=== PATIENT | male | born 1965 | race Caucasian/White ===

== ENCOUNTER 2022-07-05 10:36 | Emergency (ER) | payer SELFPAY ==
[2022-07-05] VITALS (15 sets, daily range): BP systolic 137–170; BP diastolic 94–112; PULSE 67–93; TEMP 35.8; O2SAT 95–100; BMI 35.3
--- NOTE | 2022-07-05 11:53 | ED.GENADULT ---
HPI - General Adult General Date Seen: 07/05/22 Chief complaint: Unspecified Complaint, Adult Stated complaint: Chest Pain Time Seen by Provider: 07/05/22 11:33 Source: patient Mode of arrival: ambulatory Limitations: no limitations History of Present Illness HPI narrative: Is a 57-year-old who presents for evaluation of central anterior chest pain. He has pain in his neck, left shoulder, left arm, but these pains are all chronic. The only pain that is new is the pain in his chest. This is been there for a week, and comes and goes. He says initially it was only there when he took a deep breath, it is sharp and localized. Now however he notices it when he moves as well. He says he has a lot of trouble sleeping at night, he is only able to sleep for 10 or 15 minutes, he wakes up between 2 and 4 and then gets up and cooks things in the kitchen. Apparently this pain has made it even more difficult to sleep. He is short of breath but he is always short of breath, does not sound like he is much more short of breath than usual. No fever cough. No unusual pain or swelling in his legs, he has chronic knee pain. He has chronic pain in his back and neck, chronic pain in his hands. He takes oxycodone and gabapentin for chronic pain. He called the [facility] to make an appointment to be seen for the chest pain but was it recommended to come here. He says he just wanted to make sure he was not going to drop . He has longstanding problems with hypertension, but denies any known cardiac history. He does not smoke or drink. Denies other substance use. He was sent home from work he says the urine half ago, I asked him if he was on disability and that sounds like there is some sort of long story associated with why he is not currently working. We did not delve into that further. Related Data Home Medications Medication Instructions Recorded Confirmed amlodipine 10 mg tablet mg 07/05/22 bupropion HCl 150 mg 24 hr tablet, mg PO 07/05/22 extended release duloxetine 60 mg capsule,delayed mg PO 07/05/22 release gabapentin 300 mg capsule mg 07/05/22 hydroxyzine pamoate 50 mg capsule mg 07/05/22 lisinopril 20 tab 07/05/22 mg-hydrochlorothiazide 25 mg tablet methocarbamol 750 mg tablet mg 07/05/22 nabumetone 750 mg tablet mg 07/05/22 oxycodone-acetaminophen 5 mg-325 tab 07/05/22 mg tablet Allergies Allergy/AdvReac Type Severity Reaction Status Date / Time No Known Drug Allergies Allergy Verified 07/05/22 10:51 Review of Systems Status of ROS: Reports: 10 or more systems reviewed and unremarkable except as noted in History and below PFSH PFS Social History Smoking Status: Never smoker How often do you have a drink containing alcohol: never How often do you have six or more drinks on one occasion: Never AUDIT-C Alcohol total score: 0 Non-prescribed substance use: denies use Exam Narrative: Exam Narrative: Vital signs as noted above. In general, an alert, nontoxic male. Cooperative, pleasant. Head: Normocephalic, atraumatic. Eyes: Pupils are equal reactive. Extraocular movements are full. Conjunctivae are normal. ENT: Mucous membranes are moist. Throat is normal. Neck: Supple without lymphadenopathy. Heart: Regular rate and rhythm. No murmur or rub. Lungs: Clear bilaterally. No increased work of breathing, crackles or wheezes. Abdomen: Soft and nontender. No organomegaly. Extremities: Well perfused. No edema. No calf tenderness. Pulses intact. Neurologic: Patient is alert and oriented to person and place. Speech is fluent. Face is symmetric. Moves all extremities equally. Affect: Anxious, speech is a little pressured. Skin: Warm and dry. Well perfused. Const: Vital Signs, click to edit/add: Vital Signs - 24 hr 07/05/22 10:46 07/05/22 11:51 07/05/22 11:35 Temperature 96.5 F L Pulse Rate 71 Pulse Rate [Pulse Oximeter] 90 Blood Pressure 156/94 H Blood Pressure [Ri ght Upper Arm] 170/99 H Pulse Oximetry 98 100 100 Oxygen Delivery Me thod Room Air 07/05/22 11:36 07/05/22 12:03 07/05/22 12:10 Temperature Pulse Rate 88 86 90 Pulse Rate [Pulse Oximeter] Blood Pressure Blood Pressure [Ri ght Upper Arm] Pulse Oximetry 97 100 98 Oxygen Delivery Me thod 07/05/22 12:11 07/05/22 12:30 07/05/22 12:32 Temperature Pulse Rate 91 92 80 Pulse Rate [Pulse Oximeter] Blood Pressure 147/104 H Blood Pressure [Ri ght Upper Arm] Pulse Oximetry 97 100 100 Oxygen Delivery Me thod 07/05/22 12:33 07/05/22 13:00 07/05/22 13:02 Temperature Pulse Rate 91 67 88 Pulse Rate [Pulse Oximeter] Blood Pressure 137/112 H Blood Pressure [Ri ght Upper Arm] Pulse Oximetry 100 96 98 Oxygen Delivery Me thod 07/05/22 13:30 07/05/22 13:31 07/05/22 13:32 Temperature Pulse Rate 93 87 89 Pulse Rate [Pulse Oximeter] Blood Pressure 138/99 H Blood Pressure [Ri ght Upper Arm] Pulse Oximetry 95 99 99 Oxygen Delivery Me thod Documenting provider has reviewed patient's vital signs: yes Course Course Hospital Course: Patient had an EKG on arrival, my review of this shows sinus rhythm, ventricular rate of 80. Frequent PVCs which he does not seem to feel. Normal MS, normal QT. no acute ST segment changes. He is presenting with 1 week of new, localized chest pain associated with breathing and movement. Nonexertional. Point of care troponin was 0. My suspicion for a cardiac cause is fairly low. I do not see evidence of pericarditis on EKG. Pain is not exertional, present with breathing and movement, fairly atypical and troponin is 0.02. Heart score puts him at low risk. He is not hypoxic or tachycardic. He was hypertensive on arrival at 170/99. My suspicion of dissection is fairly low given his presentation, PE is a possibility with pleuritic chest pain of course but he does not have immediately visible risk factors. I am going to do a D-dimer. Other labs are pending at this time. He has an extensive history of various musculoskeletal pain problems, it is certainly possible this is chest wall related. IM waiting on the D-dimer to determine whether to do a chest x-ray or CT of the chest. Labs are reassuring, D-dimer is negative. CBC shows a white count of 6, hemoglobin of 15.8. Normal diff aside from mildly elevated monocytes. D-dimer is normal at 0.3, and I think this effectively rules out pulmonary embolism. Given my very low clinical suspicion of dissection I think this is helpful in ruling out that diagnosis as well. Patient was hypertensive on arrival but this has improved with time. Metabolic panel is normal. LFTs show mildly elevated AST and ALT but otherwise LFTs are unremarkable as well. CRP is less than 0.5 and BNP is essentially undetectable. Given atypical nature of symptoms and duration of symptoms I do not think a 2nd troponin is necessary. I think it is reasonable to let him go home being unremarkable chest x-ray which is being done right now. Would recommend continuation of his normal pain medications with potential addition of anti-inflammatories such as ibuprofen. Primary care follow-up for re-evaluation next week. Chest x-rays negative by my review, very lateral edges of the chest x-ray are cut off. Final radiology report is negative. Final plan as above. Vital Signs Vital signs: Initial Vital Signs Temperature 96.5 F L 07/05/22 10:46 Temperature Source Temporal Artery Scan 07/05/22 10:46 Pulse Rate 90 07/05/22 10:46 Blood Pressure 170/99 H 07/05/22 10:46 Blood Pressure Mean 122 07/05/22 10:46 Blood Pressure Position Sitting 07/05/22 10:46 Pulse Oximetry 98 07/05/22 10:46 Oxygen Delivery Method 07/05/22 10:46 Vital Signs Temperature 96.5 F L 07/05/22 10:46 Pulse Rate 90 07/05/22 10:46 Blood Pressure 170/99 H 07/05/22 10:46 Pulse Oximetry 98 07/05/22 10:46 Oxygen Delivery Method 07/05/22 10:46 Temperature 96.5 F L 07/05/22 10:46 Pulse Rate 89 07/05/22 13:32 Blood Pressure 138/99 H 07/05/22 13:31 Pulse Oximetry 99 07/05/22 13:32 Oxygen Delivery Method 07/05/22 10:46 Medical Decision Making Lab Data Labs: Lab Results 07/05/22 07/05/22 07/05/22 Range/Units 11:52 11:52 11:52 WBC 6.15 (4.50-11.00) K/uL RBC 4.72 (4.30-5.90) m/uL Hgb 15.8 (13.5-17.5) gm/dL Hct 46.6 (37.0-53.0) % MCV 99 (80-100) fL MCH 34 (26-34) pg MCHC 34 (32-36) gm/dL RDW Coeff of Lucy 12.6 (11.5-15.5) % Plt Count 222 (140-440) K/uL Neut % (Auto) 53.0 (42.0-72.0) % Lymph % (Auto) 30.2 (20-44) % [place] % (Auto) 13.0 H (0.0-11.0) % Eos % (Auto) 2.8 (0.0-7.0) % Baso % (Auto) 0.8 (0.0-3.0) % Neut # (Auto) 3.26 (1.7-7.0) K/uL Lymph # (Auto) 1.86 (0.90-2.90) K/uL [place] # (Auto) 0.80 (0.00-0.90) K/UL Eos # (Auto) 0.17 (0.00-0.50) K/uL Baso # (Auto) 0.05 (0.00-0.30) K/uL D-Dimer Quant (PE/DVT) 0.30 (0.00-0.50) ug/ml Sodium 138 (135-149) mmol/L Potassium 3.9 (3.6-5.1) mmol/L Chloride 103 (96-114) mmol/L Carbon Dioxide 26 (20-32) mmol/L BUN 18 (7-30) mg/dL Creatinine 0.8 (0.5-1.5) mg/dL Estimated Creat Clear 109.13 Estimated GFR 102 ml/min Glucose 123 H (60-115) mg/dL Calcium 9.2 (8.4-10.6) mg/dL Total Bilirubin 0.8 (0.1-1.5) mg/dL Direct Bilirubin 0.3 (0.0-0.5) mg/dL AST 52 H (12-35) U/L ALT 52 H (4-50) U/L Alkaline Phosphatase 70 (40-150) U/L C-Reactive Protein < 0.5 L (0.5-1.0) mg/dL NT-Pro-B Natriuret Pep < 20 pg/mL Total Protein 8.2 (6.0-8.3) g/dL Albumin 4.9 (3.3-5.0) g/dL Lipase 143 (23-300) U/L POC Troponin I (0.01-0.04) ng/ml 07/05/22 Range/Units 11:53 WBC (4.50-11.00) K/uL RBC (4.30-5.90) m/uL Hgb (13.5-17.5) gm/dL Hct (37.0-53.0) % MCV (80-100) fL MCH (26-34) pg MCHC (32-36) gm/dL RDW Coeff of Lucy (11.5-15.5) % Plt Count (140-440) K/uL Neut % (Auto) (42.0-72.0) % Lymph % (Auto) (20-44) % [place] % (Auto) (0.0-11.0) % Eos % (Auto) (0.0-7.0) % Baso % (Auto) (0.0-3.0) % Neut # (Auto) (1.7-7.0) K/uL Lymph # (Auto) (0.90-2.90) K/uL [place] # (Auto) (0.00-0.90) K/UL Eos # (Auto) (0.00-0.50) K/uL Baso # (Auto) (0.00-0.30) K/uL D-Dimer Quant (PE/DVT) (0.00-0.50) ug/ml Sodium (135-149) mmol/L Potassium (3.6-5.1) mmol/L Chloride (96-114) mmol/L Carbon Dioxide (20-32) mmol/L BUN (7-30) mg/dL Creatinine (0.5-1.5) mg/dL Estimated Creat Clear Estimated GFR ml/min Glucose (60-115) mg/dL Calcium (8.4-10.6) mg/dL Total Bilirubin (0.1-1.5) mg/dL Direct Bilirubin (0.0-0.5) mg/dL AST (12-35) U/L ALT (4-50) U/L Alkaline Phosphatase (40-150) U/L C-Reactive Protein (0.5-1.0) mg/dL NT-Pro-B Natriuret Pep pg/mL Total Protein (6.0-8.3) g/dL Albumin (3.3-5.0) g/dL Lipase (23-300) U/L POC Troponin I 0.02 (0.01-0.04) ng/ml Discharge Plan Discharge Clinical Impression: Atypical chest pain Patient Disposition: Home, Self-Care Condition: Stable Instructions: Chest Pain (ED) Additional Instructions: Follow up with your clinic doctor for recheck in the next couple of weeks. Return for severe pain or other worsening symptoms. Continue your current medications. All tests today are reassuring and there is no evidence of a dangerous cause for your chest pain. Prescriptions: No Action nabumetone 750 mg tablet Label Comments: TAKE ONE TABLET BY MOUTH TWICE A DAY WITH MEALS hydroxyzine pamoate 50 mg capsule Label Comments: TAKE ONE CAPSULE BY MOUTH EVERY DAY AT BEDTIME NEEDED oxycodone-acetaminophen 5-325 mg tablet methocarbamol 750 mg tablet Label Comments: TAKE ONE TABLET BY MOUTH EVERY 6 HOURS NEEDED FOR MUSCLE SPASM amlodipine 10 mg tablet Label Comments: TAKE ONE TABLET BY MOUTH EVERY DAY gabapentin 300 mg capsule Label Comments: TAKE TWO CAPSULES BY MOUTH THREE TIMES A DAY lisinopril-hydrochlorothiazide 20-25 mg tablet Label Comments: TAKE ONE TABLET BY MOUTH EVERY MORNING bupropion HCl 150 mg tablet extended release 24 hr PO Label Comments: TAKE ONE TABLET BY MOUTH EVERY MORNING duloxetine 60 mg capsule,delayed release(DR/EC) PO Label Comments: TAKE ONE CAPSULE BY MOUTH EVERY DAY Stand Alone Forms: [facility] Info Instructions
[2022-07-05 12:17] LABS: Basophils Absolute Auto 0.05 K/uL (0.00-0.30); Basophils Percent Auto 0.8 % (0.0-3.0); Eosinophils Absolute Auto 0.17 K/uL (0.00-0.50); Eosinophils Percent Auto 2.8 % (0.0-7.0); Hematocrit 46.6 % (37.0-53.0); Hemoglobin* 15.8 gm/dL (13.5-17.5); Immature Granulocytes Abs Auto 0.01 K/uL (0.00-0.30); Immature Granulocytes Pct Auto 0.2 %; Lymphocytes Absolute Auto 1.86 K/uL (0.90-2.90); Lymphocytes Percent Auto 30.2 % (20-44); Mean Corpuscular HGB Conc 34 gm/dL (32-36); Mean Corpuscular Hemoglobin 34 pg (26-34); Mean Corpuscular Volume 99 fL (80-100); Neutrophils Absolute Auto 3.26 K/uL (1.7-7.0); Platelet Count* 222 K/uL (140-440); RDW Coefficient of Variation % 12.6 % (11.5-15.5); Red Blood Count 4.72 m/uL (4.30-5.90); White Blood Count* 6.15 K/uL (4.50-11.00)
[2022-07-05 12:22] LABS: Troponin, Point-of-Care* 0.02 ng/ml (0.01-0.04)
[2022-07-05 12:25] LABS: Slide Review Reflex No
[2022-07-05 12:32] LABS: Albumin* 4.9 g/dL (3.3-5.0); Chloride* 103 mmol/L (96-114)
[2022-07-05 12:33] LABS: Potassium* 3.9 mmol/L (3.6-5.1); Sodium* 138 mmol/L (135-149)
[2022-07-05 12:35] LABS: Creatinine* 0.8 mg/dL (0.5-1.5); Est. Creatinine Clearance* 109.13; Estimated Glomerular Filt Rate 102 ml/min
[2022-07-05 12:36] LABS: Alanine Aminotransferase* 52 U/L (4-50); Alkaline Phosphatase* 70 U/L (40-150); Aspartate Amino Transferase* 52 U/L (12-35); Bilirubin Direct* 0.3 mg/dL (0.0-0.5); Bilirubin Total* 0.8 mg/dL (0.1-1.5); Blood Urea Nitrogen* 18 mg/dL (7-30); Calcium* 9.2 mg/dL (8.4-10.6); Carbon Dioxide* 26 mmol/L (20-32); Glucose* 123 mg/dL (60-115); Lipase* 143 U/L (23-300); Total Protein* 8.2 g/dL (6.0-8.3)
[2022-07-05 12:47] LABS: C Reactive Protein* < 0.5 mg/dL (0.5-1.0); NT Pro B Type NatriureticPept* < 20 pg/mL
--- NOTE | 2022-07-05 12:50 | CRLHL7_ITS ---
For Patients: As a result of the Century Cures Act, medical imaging exams and procedure reports are released immediately into your electronic medical record. You may view this report before your referring provider. If you have questions, please contact your health care provider. INDICATION: Chest pain. TECHNIQUE: Two-view chest. FINDINGS: Clear lungs. Overall heart size and pulmonary vascularity are within normal limits. Two level cervical spine fusion incompletely evaluated on this chest x-ray. Mild spurring of the mid to lower thoracic spine. IMPRESSION: No acute cardiopulmonary process identified. Postsurgical change of the lower cervical spine. Dictated by Zeeshan Roy MD @ 07/05/2022 1:41:27 PM (Electronically Signed)
== END 2022-07-05 14:28 | disposition home or self-care (01) ==
PROVIDERS: Emergency Provider Emergency Medicine
DX: R07.89 Other chest pain (principal)
CPT/HCPCS: 36415; 71046; 80048; 80076; 83690; 83880; 84484; 85025; 85379; 86140; 93005; 94761; 99284; 99285

== ENCOUNTER 2024-05-28 07:34 | Outpatient (CLI) | payer MEDICARE, SELFPAY | END 2024-05-28 07:35 | disposition home or self-care (01) | PROVIDERS: PCP Family Medicine; Visit Provider Family Medicine | DX: M54.16 Radiculopathy, lumbar region (principal); M48.062 Spinal stenosis, lumbar region with neurogenic claudication | CPT/HCPCS: 62323; J0702; Q9966 ==

== ENCOUNTER 2024-09-07 08:14 | Outpatient (CLI) | payer MEDICARE, SELFPAY | END 2024-09-07 08:15 | disposition home or self-care (01) | PROVIDERS: PCP Family Medicine; Visit Provider Family Medicine | DX: M54.16 Radiculopathy, lumbar region (principal); M51.362 Other intervertebral disc degeneration, lumbar region with discogenic back pain and lower extremity pain | CPT/HCPCS: 62323; J0702; Q9966 ==